=== PATIENT | female | born 1945 | race Caucasian/White ===

== ENCOUNTER 2022-02-26 10:23 | Inpatient (IN) | payer MEDICARE, OTHER ==
[~2022-02-26] VITALS: Ht 157.4 cm; Wt 102.6 kg
[2022-02-26] MEDS ORDERED: AMLODIPINE BESYL5 MG PO (13:27)
[2022-02-26] MEDS ORDERED: ATORVASTATIN CA40 M1 PO (13:27)
[2022-02-26] MEDS ORDERED: ELIQUIS5 M1 PO (14:03)
[2022-02-26] MEDS ORDERED: MIRALAX17 GM PO (14:05)
[2022-02-26] MEDS ORDERED: CYMBALTA30 MG PO (14:07)
[2022-02-26] MEDS ORDERED: MAG DELAY64 MG PO (14:55)
[2022-02-26] MEDS ORDERED: OMEPRAZOLE20 M3 PO (14:57)
[2022-02-26] MEDS ORDERED: NATURE'S BLEND F1 MG PO (17:56)
[2022-02-26] MEDS ORDERED: LASIX20 MG PO (17:56)
[2022-02-26] MEDS ORDERED: LANTUS SOL100 UNIT/1 SC (17:57)
[2022-02-26] MEDS ORDERED: THIAMINE HCL100 MG PO (17:58)
[2022-02-26] MEDS ORDERED: OSTERA TABLET1 EACH PO (18:01)
[2022-02-26] MEDS ORDERED: HUMALOG 751 UNIT/0.0 SQ (18:06)
[2022-02-26 19:19] VITALS: BP 142/54
[2022-02-26 20:47] VITALS: BP 142/54
[2022-02-27 06:43] LABS: BASO # 0.1 10*3/uL (0.0-0.1); EOS # 0.1 10*3/uL (0.0-0.4); EOS % 1.8 % (1.0-4.0); HEMATOCRIT 30.8 % (37.0-47.0); LYMPH # 1.4 10*3/uL (1.3-4.4); LYMPH % 20.4 % (27.0-41.0); MEAN CELL VOLUME 90.9 fl (81.0-99.0); MEAN CORPUSCULAR HGB 29.2 pg (27.0-31.0); MEAN CORPUSCULAR HGB CONC 32.1 g/dl (33.0-37.0); MEAN PLATELET VOLUME 11.4 fl (9.6-12.3); MONO # 0.6 10*3/uL (0.1-1.0); MONO % 9.1 % (3.0-9.0); NEUT # 4.8 10*3/uL (2.3-7.9); NEUT % 67.4 % (47.0-73.0); PLATELET COUNT AUTOMATED 246 10*3/uL (130-400); RED BLOOD COUNT 3.39 10*6/uL (4.10-5.10); WHITE BLOOD COUNT 7.1 10*3/uL (4.8-10.8)
[2022-02-27 07:04] LABS: CREATININE 1.15 mg/dL (0.55-1.02); POTASSIUM 4.5 mmol/L (3.5-5.1); TOTAL PROTEIN 7.7 gm/dL (6.4-8.2)
[2022-02-27 07:10] LABS: THYROID STIM HORMONE (HS) 3.03 uIU/ml (0.358-4.75)
[2022-02-27 07:51] LABS: VITAMIN D, 25-HYDROXY 18.7 ng/mL (30-100)
[2022-02-27 20:00] VITALS: BP 136/82
[2022-02-28 07:37] VITALS: BP 140/70
[2022-02-28 20:00] VITALS: BP 150/71
[2022-03-01 07:45] VITALS: BP 139/59
[2022-03-01 20:00] VITALS: BP 151/58
[2022-03-02 07:37] VITALS: BP 132/75
[2022-03-02 20:00] VITALS: BP 148/54
[2022-03-03 07:39] VITALS: BP 140/76
[2022-03-03 20:00] VITALS: BP 148/54
[2022-03-04 08:00] VITALS: BP 140/61
[2022-03-04 20:00] VITALS: BP 144/74
[2022-03-05 08:00] VITALS: BP 124/68
[2022-03-05 20:00] VITALS: BP 154/89
[2022-03-06 08:00] VITALS: BP 147/57
[2022-03-06 20:00] VITALS: BP 140/48
[2022-03-07 06:55] LABS: BASO # 0.1 10*3/uL (0.0-0.1); BASO % 1.1 % (0.0-1.0); EOS # 0.3 10*3/uL (0.0-0.4); EOS % 4.7 % (1.0-4.0); HEMATOCRIT 35.3 % (37.0-47.0); LYMPH # 2.2 10*3/uL (1.3-4.4); LYMPH % 30.9 % (27.0-41.0); MEAN CELL VOLUME 91.7 fl (81.0-99.0); MEAN CORPUSCULAR HGB 28.8 pg (27.0-31.0); MEAN CORPUSCULAR HGB CONC 31.4 g/dl (33.0-37.0); MEAN PLATELET VOLUME 12.1 fl (9.6-12.3); MONO # 0.8 10*3/uL (0.1-1.0); MONO % 11.2 % (3.0-9.0); NEUT # 3.6 10*3/uL (2.3-7.9); PLATELET COUNT AUTOMATED 203 10*3/uL (130-400); RED BLOOD COUNT 3.85 10*6/uL (4.10-5.10); RED CELL DISTRI WIDTH 15.9 % (0-14.5)
[2022-03-07 07:13] LABS: CREATININE 1.42 mg/dL (0.55-1.02); POTASSIUM 4.5 mmol/L (3.5-5.1); TOTAL PROTEIN 7.6 gm/dL (6.4-8.2)
[2022-03-07 07:41] VITALS: BP 133/49
[2022-03-07 20:00] VITALS: BP 153/56
[2022-03-08 07:36] VITALS: BP 134/52
[2022-03-08 08:49] LABS: CREATININE 1.3 mg/dL (0.55-1.02); POTASSIUM 4.9 mmol/L (3.5-5.1)
[2022-03-08 20:00] VITALS: BP 141/57
[2022-03-09 07:38] VITALS: BP 139/86; BP 148/60
[2022-03-09 20:00] VITALS: BP 139/56
[2022-03-10 07:04] VITALS: BP 106/46
[2022-03-10 07:05] VITALS: BP 140/53
[2022-03-10 20:00] VITALS: BP 140/56
[2022-03-11 08:00] VITALS: BP 153/58
[2022-03-11 20:00] VITALS: BP 146/66
[2022-03-11] MEDS ORDERED: RIVASTIGMINE1 EAC2 T (23:55)
[2022-03-11] MEDS ORDERED: DIALYVITE WITH1 EACH PO (23:55)
[2022-03-11] MEDS ORDERED: NORTRIPTYLINE H75 M1 PO (23:55)
[2022-03-11] MEDS ORDERED: MEMANTINE HCL10 MG PO (23:55)
[2022-03-11] MEDS ORDERED: OLANZAPINE5 MG PO (23:55)
[2022-03-11] MEDS ORDERED: BUPROPION HYDR150 M3 PO (23:55)
[2022-03-12 07:31] VITALS: BP 129/66
[2022-03-12 20:00] VITALS: BP 119/72
[2022-03-13 08:00] VITALS: BP 158/80
[2022-03-13] MEDS ORDERED: LANTUS SOL100 UNIT/1 SC (10:54)
== END 2022-03-13 11:39 | DRG 885 ==
LOC: 3N 10:23
PROVIDERS: Internal Medicine; Registered Nurse; ADMIT Psychiatry & Neurology Psychiatry; ATTEND Psychiatry & Neurology Psychiatry
PROC: 0HBRXZZ Excision of Toe Nail, External Approach (ICD-10-PCS; principal; 2022-03-10)
PROC: 0HBRXZZ Excision of Toe Nail, External Approach (ICD-10-PCS; 2022-03-10)
PROC: 0HBRXZZ Excision of Toe Nail, External Approach (ICD-10-PCS; 2022-03-10)
PROC: 0HBRXZZ Excision of Toe Nail, External Approach (ICD-10-PCS; 2022-03-10)
PROC: 0HBRXZZ Excision of Toe Nail, External Approach (ICD-10-PCS; 2022-03-10)
PROC: 0HBRXZZ Excision of Toe Nail, External Approach (ICD-10-PCS; 2022-03-10)
PROC: 0HBRXZZ Excision of Toe Nail, External Approach (ICD-10-PCS; 2022-03-10)
PROC: 0HBRXZZ Excision of Toe Nail, External Approach (ICD-10-PCS; 2022-03-10)
PROC: 0HBRXZZ Excision of Toe Nail, External Approach (ICD-10-PCS; 2022-03-10)
PROC: 0HBRXZZ Excision of Toe Nail, External Approach (ICD-10-PCS; 2022-03-10)
DX: F33.3 Major depressive disorder, recurrent, severe with psychotic symptoms (principal); E43 Unspecified severe protein-calorie malnutrition; N17.0 Acute kidney failure with tubular necrosis; N18.32 Chronic kidney disease, stage 3b; E11.65 Type 2 diabetes mellitus with hyperglycemia; R45.851 Suicidal ideations; J84.9 Interstitial pulmonary disease, unspecified; Z68.41 Body mass index [BMI] 40.0-44.9, adult; D64.9 Anemia, unspecified; L97.512 Non-pressure chronic ulcer of other part of right foot with fat layer exposed; E66.01 Morbid (severe) obesity due to excess calories; I12.9 Hypertensive chronic kidney disease with stage 1 through stage 4 chronic kidney disease, or unspecified chronic kidney disease; E11.22 Type 2 diabetes mellitus with diabetic chronic kidney disease; F41.1 Generalized anxiety disorder; E78.5 Hyperlipidemia, unspecified; G30.9 Alzheimer's disease, unspecified; F02.80 Dementia in other diseases classified elsewhere, unspecified severity, without behavioral disturbance, psychotic disturbance, mood disturbance, and anxiety; E11.42 Type 2 diabetes mellitus with diabetic polyneuropathy; L89.610 Pressure ulcer of right heel, unstageable; F43.10 Post-traumatic stress disorder, unspecified; B35.1 Tinea unguium; E55.9 Vitamin D deficiency, unspecified; Z86.16 Personal history of COVID-19

== ENCOUNTER 2022-02-26 12:32 | Emergency (ER) | payer MEDICARE, OTHER ==
[~2022-02-26] VITALS: Ht 157.4 cm
[2022-02-26] MEDS ORDERED: AMLODIPINE BESYL5 MG PO (13:27)
[2022-02-26] MEDS ORDERED: ATORVASTATIN CA40 M1 PO (13:27)
[2022-02-26 13:28] LABS: BASO # 0.1 10*3/uL (0.0-0.1); BASO % 0.8 % (0.0-1.0); EOS # 0.1 10*3/uL (0.0-0.4); EOS % 1.8 % (1.0-4.0); HEMATOCRIT 34.4 % (37.0-47.0); LYMPH # 1.4 10*3/uL (1.3-4.4); LYMPH % 20.9 % (27.0-41.0); MEAN CELL VOLUME 92.7 fl (81.0-99.0); MEAN CORPUSCULAR HGB 28.8 pg (27.0-31.0); MEAN CORPUSCULAR HGB CONC 31.1 g/dl (33.0-37.0); MEAN PLATELET VOLUME 11.9 fl (9.6-12.3); MONO # 0.6 10*3/uL (0.1-1.0); MONO % 8.7 % (3.0-9.0); NEUT # 4.5 10*3/uL (2.3-7.9); NEUT % 67.6 % (47.0-73.0); PLATELET COUNT AUTOMATED 242 10*3/uL (130-400); RED BLOOD COUNT 3.71 10*6/uL (4.10-5.10); WHITE BLOOD COUNT 6.7 10*3/uL (4.8-10.8)
[2022-02-26 13:44] LABS: CREATININE 1.16 mg/dL (0.55-1.02); POTASSIUM 4.8 mmol/L (3.5-5.1); TOTAL PROTEIN 8.1 gm/dL (6.4-8.2)
[2022-02-26 13:45] LABS: ACT PARTIAL THROMBO TIME 26.8 SECONDS (20.0-32.1)
[2022-02-26] MEDS ORDERED: ELIQUIS5 M1 PO (14:03)
[2022-02-26] MEDS ORDERED: MIRALAX17 GM PO (14:05)
[2022-02-26 14:06] LABS: BILIRUBIN Negative (Negative); BLOOD Negative (Negative); CLARITY Clear (Clear); COLOR Yellow (Yellow); GLUCOSE Negative (Negative); KETONE Negative (Negative); LEUKO ESTERASE Negative (Negative); NITRITE Negative (Negative); PH 5.5 (4.5-8.0); SPECIFIC GRAVITY 1.015 (1.001-1.030); UROBILINOGEN 0.2 E.U./dl (0.0-1.0)
[2022-02-26] MEDS ORDERED: CYMBALTA30 MG PO (14:07)
[2022-02-26 14:17] LABS: BACTERIA 1+; URINE AMPHETAMINES < 1000 (1000ng/ml); URINE BARBITURATES < 200 (200ng/ml); URINE CANNABINOIDS (THC) < 50 (50ng/ml); URINE COCAINE < 300 (300ng/ml); URINE METHADONE < 300 (300ng/ml); URINE OPIATES < 300 (300ng/ml)
[2022-02-26 14:18] LABS: EPITHELIAL CELLS 0-2; HYALINE CAST 0-2; RBC 0-2 rbc/hpf (0-2); WBC 0-2 wbc/hpf (0-5)
[2022-02-26 14:22] LABS: URINE BENZODIAZEPINES < 200 (200ng/ml)
[2022-02-26 14:24] LABS: URINE PHENCYCLIDINE < 25 (25ng/ml)
[2022-02-26] MEDS ORDERED: MAG DELAY64 MG PO (14:55)
[2022-02-26] MEDS ORDERED: OMEPRAZOLE20 M3 PO (14:57)
[2022-02-26] MEDS ORDERED: NATURE'S BLEND F1 MG PO (17:56)
[2022-02-26] MEDS ORDERED: LASIX20 MG PO (17:56)
[2022-02-26] MEDS ORDERED: LANTUS SOL100 UNIT/1 SC (17:57)
[2022-02-26] MEDS ORDERED: THIAMINE HCL100 MG PO (17:58)
[2022-02-26] MEDS ORDERED: OSTERA TABLET1 EACH PO (18:01)
[2022-02-26] MEDS ORDERED: HUMALOG 751 UNIT/0.0 SQ (18:06)
== END 2022-02-26 15:04 ==
LOC: ED 12:32
PROVIDERS: Family Medicine
DX: F29 Unspecified psychosis not due to a substance or known physiological condition (principal); Z20.822 Contact with and (suspected) exposure to COVID-19; Z79.899 Other long term (current) drug therapy